=== PATIENT | male | born 1945 | race Two or more races ===

== ENCOUNTER 2024-09-22 15:29 | Inpatient (IN) | payer OTHER ==
[~2024-09-22] VITALS: Ht 175.3 cm; Wt 85.0 kg
[~2024-09-22 15:29] MED LIST: ALLO300T2 PO; ATOR-47 PO; CALC0.25 PO; CLON0.2T PO; DOXY100T2 PO; FLUT50SP NAS; FURO40TA4 PO; HYDR50TA47 PO; MET50T PO; METF-370 PO; NIFE1TAB31 PO; OMEP1CAP70 PO; POTA-228 PO; PRED10TA PO; SACU1TAB7 PO
--- NOTE | 2024-09-22 15:51 | ECG ---
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
--- NOTE | 2024-09-22 16:09 | ED.PDOC ---
History of Present Illness HPI Comments 79-year-old male presents with a chief complaint of syncope. Patient states that he was at home and felt dizzy, then all he can remember is waking up on the floor. Patient has a pacemaker and was told that he possibly needs a replacement. Patient denies any chest pain at this time or headache. Chief Complaint: Syncope Time Seen by MD: 16:00 Primary Care Provider: LISA Burgos Notes: Medications, Allergies Allergies: Coded Allergies: Carisoprodol (Verified Allergy, Unknown, 09/22/24) Information Source: Patient Mode of Arrival: Ambulatory Severity: Moderate Timing: Hours Duration: Since onset Prehospital treatment: None Past Medical History PAST MEDICAL HISTORY: CHF, CKF (Stage 3), COPD, DM, Gout, HTN Surgical History: Pt Confused Family History Family History: Reviewed,noncontributory to illness Social History Smoker: Non-Smoker Alcohol: Denies ETOH Use Drugs: Denies Drug Use Lives In: Home Constitutional: denies: chills, diaphoresis, fatigue, fever, malaise, sweats, weakness, others EENTM: denies: blurred vision, double vision, ear bleeding, ear discharge, ear drainage, ear pain, ear ringing, eye pain, eye redness, hearing loss, mouth pain, mouth swelling, nasal discharge, nose bleeding, nose congestion, nose pain, photophobia, tearing, throat pain, throat swelling, voice changes, others Respiratory: denies: cough, hemoptysis, orthopnea, SOB at rest, shortness of breath, SOB with excertion, stridor, wheezing, others Cardiovascular: reports: syncope; denies: chest pain, dizzy spells, diaphoresis, Dyspnea on exertion, edema, irregular heart beat, left arm pain, lightheadedness, palpitations, PND, others Gastrointestinal: denies: abdomen distended, abdominal pain, blood streaked bowels, constipated, diarrhea, dysphagia, difficulty swallowing, hematemesis, melena, nausea, poor appetite, poor fluid intake, rectal bleeding, rectal pain, vomiting, others Genitourinary: denies: burning, dysuria, flank pain, frequency, hematuria, incontinence, penile discharge, penile sore, pain, testicle pain, testicle swelling, urgency, others Neurological: denies: dizziness, fainting, headache, left sided numbness, left sided weakness, numbness, paresthesia, pre-existing deficit, right sided numbness, right sided weakness, seizure, speech problems, tingling, tremors, weakness, others Musculoskeletal: denies: back pain, gout, joint pain, joint swelling, muscle pain, muscle stiffness, neck pain, others Integumetry: denies: bruises, change in color, change in hair/nails, dryness, laceration, lesions, lumps, rash, wounds, others Allergic/Immunocompromised: denies: Difficulty Healing, Frequent Infections, Hives, Itching, others Hematologic/Lymphatic: denies: anemia, blood clots, easy bleeding, easy bruising, swollen glands, others Endocrine: denies: excessive hunger, excessive sweating, excessive thirst, excessive urination, flushing, intolerance to cold, intolerance to heat, une xplained weight gain, unexplained weight loss, others Psychiatric: denies: anxiety, bipolar disorder, depression, hopeless, panic disorder, schizophrenia, sleepless, suicidal, others All Other Systems: Reviewed and Negative Physical Exam General Appearance: No Apparent Distress, Normal HEENT: Normal ENT Inspection, Pharynx Normal, TMs Normal Neck: Full Range of Motion, Non-Tender, Normal, Normal Inspection Respiratory: Chest Non-Tender, Lungs Clear, No Accessory Muscle Use, No Respiratory Distress, Normal Breath Sounds Cardiovascular: No Edema, No JVD, No Murmur, No Gallop, Normal Peripheral Pul ses, Regular Rate/Rhythm Breast Exam: Deferred Gastrointestinal: No Organomegaly, Non Tender, No Pulsatile Mass, Normal Bowel Sounds, Soft Genitalia: Deferred Pelvic: Deferred Rectal: Deferred Extremities: No calf tenderness, Normal capillary refill, Normal inspection, Normal range of motion, Non-tender, No pedal edema Musculoskeletal : Apperance: Normal Neurologic: Alert, cloth washer back tender II-XII nml as Tested, No Motor Deficits, Normal Affect, Normal Mood, No Sensory Deficits Cerebellar Function: Normal Reflexes: Normal Skin: Dry, Normal Color, Warm Lymphatic: No Adenopathy Was a procedure done? Was a procedure done?: No EKG EKG : Pulse Rate (adult): 86 [place]: Normal Cardiac Rhythm: PVC's Block: None Hypertrophy: None ST: Normal Differential Dx Considerations may include: arrhythmia, riojas person syncope, hypoglycemia, electrolyte disorders, seizure, pacemaker failure X-Ray, Labs, Meds, VS Vital Signs Date Time Temp Pulse Resp B/P (MAP) Pulse Ox O2 Delivery O2 Flow Rate FiO2 09/22/24 16:09 86 09/22/24 15:47 86 09/22/24 15:35 97.9 85 20 133/94 (107) 94 97.9 Lab Test 09/22/24 16:30 09/22/24 15:41 Range/Units White Blood Count 11.4 H 4.4-10.8 10^3/uL Red Blood Count 4.41 L 4.5-5.90 10^6/uL Hemoglobin 13.5 13.5-17.5 g/dL Hematocrit 39.9 L 41.0-53.0 % Mean Corpuscular Volume 90.6 80.0-100.0 fL Mean Corpuscular Hemoglobin 30.6 28.0-32.0 pg Mean Corpuscular Hemoglobin Concent 33.8 32.0-36.0 g/dL Red Cell Distribution Width 14.6 H 11.8-14.3 % Platelet Count 217 140-450 10^3/uL Mean Platelet Volume 10.8 6.9-10.8 fL Neutrophils (%) (Auto) 71.5 37.0-80.0 % Lymphocytes (%) (Auto) 20.2 10.0-50.0 % Monocytes (%) (Auto) 7.5 0.0-12.0 % Eosinophils (%) (Auto) 0.5 0.0-7.0 % Basophils (%) (Auto) 0.3 0.0-2.0 % Neutrophils # (Auto) 8.2 1.6-8.6 10 ^3/uL Lymphocytes # (Auto) 2.3 0.4-5.4 10 ^3/uL Monocytes # (Auto) 0.9 0-1.3 10 ^3/uL Eosinophils # (Auto) 0.1 0-0.8 10 ^3/uL Basophils # (Auto) 0 0-0.2 10 ^3/uL Nucleated Red Blood Cells 0.0 % Sodium Level 141 136-145 mmol/L Potassium Level 3.8 3.5-5.1 mmol/L Chloride Level 102 98-107 mmol/L Carbon Dioxide Level 31 20-31 mmol/L Anion Gap 8 5-15 Blood Urea Nitrogen 20 9-23 mg/dL Creatinine 1.67 H 0.700-1.30 mg/dL Glomerular Filtration Rate Calc 42 >90 mL/min BUN/Creatinine Ratio 12.0 10.0-20.0 Serum Glucose 197 H 74-106 mg/dL Calcium Level 10.1 8.7-10.4 mg/dL Troponin I High Sensitivity 457 *H </=54 ng/L POC Glucose 202 H 70-106 mg/dl Time of 1ST Reevaluation: 16:30 Reevaluation 1ST: Unchanged Patient Education/Counseling: Diagnosis, Treatment, Prognosis, Need For Follow Up Family Education/Counseling: Diagnosis, Treatment, Prognosis, Need For Follow Up, No Family Present Comments pt suffered a syncopal episode. he was seen by his doctor and sent here for admission for cardiology consult and pacer eval. Departure 1 Departure Time of Disposition: 17:07 Impression: Primary Impression: Syncope Qualified Codes: I45.9 - Conduction disorder, unspecified Additional Impressions: Renal insufficiency NSTEMI (non-ST elevated myocardial infarction) Disposition: ADMITTED INPATIENT Admit to: ICU Condition: Serious Discharged With: Self, Relative Critical Care Note Critical Care Time?: Yes (55 min-critical care time only) Critical care comment: Due to concerns for patients condition deteriorating, the care required my highest level of attention and readiness to intervene. I assessed the patient, reviewed the medical records, ordered the appropriate tests and treatments, then reassessed for results and responsiveness. I communicated with medical personnel and consultants and formulated a plan of care. Total critical care time excludes any procedures Stability Stability form required: No Heart Score Heart Score: Heart Score Response (Comments) Value History N/A 0 EKG N/A 0 Age N/A 0 Risk Factors N/A 0 Troponin N/A 0 Total 0 I personally scribed for DEB ANTONIO MD ([email or web address]) on 09/22/24 at 16:09. Electronically submitted by Mich Andujar ([email or web address]). DEB ANTONIO MD Sep 22, 2024 16:09
--- NOTE | 2024-09-22 16:34 | DVH ---
CHEST RADIOGRAPH Indication: syncope Technique: Single frontal view of the chest was obtained COMPARISON: None FINDINGS: Lines and Tubes: None Lungs: Clear Pleura: Blunting right costophrenic angle suggestive of a small pleural effusion Cardiomediastinal contours: Unremarkable Bones: Unremarkable IMPRESSION: 1. Probable small right pleural effusion. Mild cardiomegaly
--- NOTE | 2024-09-22 16:40 | DVH ---
CLINICAL INDICATION: injury TECHNIQUE: 3 views left hip XY L HIP COMPLETE XRAY Comparison: None FINDINGS/IMPRESSION: : There is no evidence of acute fracture or dislocation. Soft tissues are unremarkable.
[2024-09-22 16:47] LABS: Basophils # (auto) 0 10 ^3/uL (0-0.2); Basophils % (auto) 0.3 % (0.0-2.0); Eosinophils # (auto) 0.1 10 ^3/uL (0-0.8); Eosinophils % (auto) 0.5 % (0.0-7.0); Hematocrit 39.9 % (41.0-53.0); Hemoglobin 13.5 g/dL (13.5-17.5); Lymphocytes # (auto) 2.3 10 ^3/uL (0.4-5.4); Lymphocytes % (auto) 20.2 % (10.0-50.0); Mean Corpuscular Hemoglobin 30.6 pg (28.0-32.0); Mean Corpuscular Hgb Conc. 33.8 g/dL (32.0-36.0); Mean Corpuscular Volume 90.6 fL (80.0-100.0); Monocytes # (auto) 0.9 10 ^3/uL (0-1.3); Monocytes % (auto) 7.5 % (0.0-12.0); Neutrophils # (auto) 8.2 10 ^3/uL (1.6-8.6); Neutrophils % (auto) 71.5 % (37.0-80.0); Platelet Count (auto) 217 10^3/uL (140-450); Red Blood Cells 4.41 10^6/uL (4.5-5.90); Red Cell Distribution Width 14.6 % (11.8-14.3); White Blood Cell 11.4 10^3/uL (4.4-10.8)
[2024-09-22 16:55] LABS: Chloride 102 mmol/L (98-107); Potassium 3.8 mmol/L (3.5-5.1); Sodium 141 mmol/L (136-145)
[2024-09-22 16:56] LABS: Anion Gap 8 (5-15); Calcium 10.1 mg/dL (8.7-10.4); Carbon Dioxide 31 mmol/L (20-31)
[2024-09-22 17:01] LABS: Blood Urea Nitrogen 20 mg/dL (9-23)
[2024-09-22 17:02] LABS: Glucose 197 mg/dL (74-106)
--- NOTE | 2024-09-22 17:26 | DVHHP2 ---
History of Present Illness Reason for Visit: Patient was sent by urgent care for syncope. History of Present Illness 79-year-old male with a known history of diabetes mellitus type 2, hypertension, 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 Patient stated that he was walking with his grandson and all of a sudden he past and fell backwards. He did mention that probably he lost consciousness for half a minute. Denies any chest pain palpitation before that denies any lightheadedness dizziness. Denies any seizure-like activities. In the ER patient was found to have elevated troponins original admission was recommended for SD. Patient currently denies any chest pain palpitations lightheaded dizziness fevers chills cough or phlegm. Cardiovascular: CHF, HTN, hyperipidemia Renal/: Chronic renal insuff Endocrine: Diabetes Past Surgical History: Other (Status post AICD.) Family History: None Smoke: No ALCOHOL: none Review of Systems Review of Systems 12 Review of systems were negative except mentioned above. Allergies: Coded Allergies: Carisoprodol (Verified Allergy, Unknown, 09/22/24) Medications Current Medications Medications Dose Ordered Sig/Yuki Route Start Time Stop Time Status Last Admin Dose Admin Sodium Chloride 1,000 ml @ 60 mls/hr [id number] IV 09/22/24 17:30 UNV Acetaminophen/ Hydrocodone Bitart 1 tab Q4HP PRN PO 09/22/24 17:30 UNV Temazepam 15 mg QHSP PRN PO 09/22/24 17:30 UNV Ondansetron HCl 4 mg Q4HP PRN IV 09/22/24 17:30 UNV Acetaminophen 650 mg Q6HP PRN PO 09/22/24 17:30 UNV Morphine Sulfate 2 mg Q4HPRN PRN IV 09/22/24 17:30 UNV Nitroglycerin 0.4 mg Q5MINP PRN SL 09/22/24 17:30 UNV Morphine Sulfate 2 mg Q30M PRN IV 09/22/24 17:30 UNV Enoxaparin Sodium 80 mg Q12HR SC 09/22/24 17:30 UNV Exam Vital Signs Vital Signs Date Time Temp Pulse Resp B/P (MAP) Pulse Ox O2 Delivery O2 Flow Rate FiO2 09/22/24 16:09 86 09/22/24 15:35 97.9 20 133/94 (107) 94 97.9 Exam HEENT pupils are reactive Neck is supple CV system is regular rate and rhythm Respiratory: Clear GI positive bowel sound Extremity no edema 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 Labs/Xrays Labs Test 09/22/24 16:30 09/22/24 15:41 Range/Units White Blood Count 11.4 H 4.4-10.8 10^3/uL Red Blood Count 4.41 L 4.5-5.90 10^6/uL Hemoglobin 13.5 13.5-17.5 g/dL Hematocrit 39.9 L 41.0-53.0 % Mean Corpuscular Volume 90.6 80.0-100.0 fL Mean Corpuscular Hemoglobin 30.6 28.0-32.0 pg Mean Corpuscular Hemoglobin Concent 33.8 32.0-36.0 g/dL Red Cell Distribution Width 14.6 H 11.8-14.3 % Platelet Count 217 140-450 10^3/uL Mean Platelet Volume 10.8 6.9-10.8 fL Neutrophils (%) (Auto) 71.5 37.0-80.0 % Lymphocytes (%) (Auto) 20.2 10.0-50.0 % Monocytes (%) (Auto) 7.5 0.0-12.0 % Eosinophils (%) (Auto) 0.5 0.0-7.0 % Basophils (%) (Auto) 0.3 0.0-2.0 % Neutrophils # (Auto) 8.2 1.6-8.6 10 ^3/uL Lymphocytes # (Auto) 2.3 0.4-5.4 10 ^3/uL Monocytes # (Auto) 0.9 0-1.3 10 ^3/uL Eosinophils # (Auto) 0.1 0-0.8 10 ^3/uL Basophils # (Auto) 0 0-0.2 10 ^3/uL Nucleated Red Blood Cells 0.0 % Sodium Level 141 136-145 mmol/L Potassium Level 3.8 3.5-5.1 mmol/L Chloride Level 102 98-107 mmol/L Carbon Dioxide Level 31 20-31 mmol/L Anion Gap 8 5-15 Blood Urea Nitrogen 20 9-23 mg/dL Creatinine 1.67 H 0.700-1.30 mg/dL Glomerular Filtration Rate Calc 42 >90 mL/min BUN/Creatinine Ratio 12.0 10.0-20.0 Serum Glucose 197 H 74-106 mg/dL Calcium Level 10.1 8.7-10.4 mg/dL Troponin I High Sensitivity 457 *H </=54 ng/L POC Glucose 202 H 70-106 mg/dl Assessment/Plan Assessment/Plan 79-year-old male with known history of diabetes mellitus type 2, hypertension, dyslipidemia, status post AICD, 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 Patient was found to have 1. Syncope rule out cardiac arrhythmia 2. Status post AICD, AICD interrogation 3. Elevated troponin rule out acute SD 4. Hypertension 5. Diabetes mellitus type 2 6. Acute kidney injury with underlying CKD 7. History of DVT of the left leg currently on Eliquis -admit to do you, trend troponins, 2D echo, cardiology consultation -aspirin, statin, beta karina, therapeutic Lovenox -hold Eliquis as we are giving therapeutic Lovenox for NSTEMI -discussed with the patient and patient's at bedside the understands verbalized understanding and agreeable to plan. Plan discussed with: Patient, Spouse My Orders Orders - PHILIPP STRANGE MD Procedure Category Date Status Time Admit ADMIT 09/22/24 Transmitted 17:17 Code Status CODE 09/22/24 Transmitted 17:17 2 Gm Sodium Diet DIET 09/22/24 Transmitted Dinner Sodium Chloride 0.9% PHA 09/22/24 Logged 17:30 Hydrocodone-Acet PHA 09/22/24 Logged 5/325mg Tab ([place] 17:30 Temazepam (Restoril) PHA 09/22/24 Logged 17:30 Ondansetron Hcl PHA 09/22/24 Logged (Zofran) 17:30 Fall Risk Precautions CHAY 09/22/[address] 17:17 Complete Blood Count LAB 09/23/24 Verified 04:00 Comprehensive LAB 09/23/24 Verified Metabolic Panel 04:00 Echo 2d Mode Cardiac US 09/22/24 Logged DOP 17:17 Condition: Fair CAHY 09/22/24 In Process 17:17 Acetaminophen Tablet PHA 09/22/24 Logged (Tylenol Tablet) 17:30 Morphine Sulfate PHA 09/22/24 Logged Injection 17:30 Nitroglycerin [facility] 09/22/24 Logged Sublingual (Ntrostat 17:30 Morphine Sulfate PHA 09/22/24 Logged Injection 17:30 Stat Ekg For Chest [facility] 09/22/24 In Process Pain 17:17 Notify Of Changes [facility] 09/22/24 In Process From Base 17:17 Hotel Custodian For [facility] 09/22/24 In Process 24 Hours 17:17 Emergency Dysrhythmia [facility] 09/22/24 In Process Protocol 17:17 Rhythm Strips Once [facility] 09/22/24 In Process Every Shift 17:17 Oxygen By Nasal RT 09/22/24 Transmitted Cannula 17:17 * Cardiology Consult CONS 09/22/24 Transmitted 17:17 Enoxaparin Sodium [facility] 09/22/24 Logged (Lovenox) 17:30 Metoprolol Tartrate [facility] 09/22/24 Verified Tablet (Lopressor Ta 22:00 Sacubitril-Valsartan [facility] 09/22/24 Verified (Entresto 24-26 Mg 22:00 Atorvastatin (Lipitor) [facility] 09/22/24 Verified 22:00 Date of Service: Sep 22, 2024 Billing Provider: PHILIPP STRANGE MD Common Visit Codes: NOT BILLABLE PHILIPP SRTANGE MD Sep 22, 2024 17:26
[2024-09-22] MEDS ORDERED: ONDANSETRON HCL 4 MG/2 ML VIAL IV PRN (17:30)
[2024-09-22] MEDS ORDERED: NITROGLYCERIN 0.4 MG SL TAB SL PRN (17:30)
[2024-09-22] MEDS ORDERED: TEMAZEPAM 15 MG CAP PO PRN (17:30)
[2024-09-22] MEDS ORDERED: HYDROcodone-ACET 5/325MG TAB PO PRN (17:30)
[2024-09-22] MEDS ORDERED: MORPHINE SULFATE INJ 2 MG/ml SYRG IV PRN ×2 (17:30)
[2024-09-22] MEDS: ENOXAPARIN SOD 100 MG/1 ML SYRINGE SC SCH (18:52)
[2024-09-22] MEDS: ASPirin 325 MG TAB PO ONE (19:01)
[2024-09-22 19:40] VITALS: PULSE 82; RESP 16; O2SAT 95
[2024-09-22] MEDS: SODIUM CHLORIDE 0.9% 1,000 ML IV SCH (20:30)
[2024-09-22] MEDS: SACUBITRIL-VALSARTAN 24mg/26mg TAB PO SCH (22:50)
[2024-09-22] MEDS: ATORVASTATIN 20 MG TAB PO SCH (22:51)
[2024-09-22] MEDS: METOPROLOL TARTRATE 50 MG TAB PO SCH (22:51)
[2024-09-23] VITALS (13 sets, daily range): BP systolic 123–164; BP diastolic 64–99; PULSE 60–88; RESP 12–18; TEMP 98–98.8; O2SAT 96–99
[2024-09-23] MEDS: ACETAMINOPHEN 325 MG TAB PO PRN (00:34)
[2024-09-23 04:22] LABS: Basophils # (auto) 0 10 ^3/uL (0-0.2); Basophils % (auto) 0.4 % (0.0-2.0); Eosinophils # (auto) 0.1 10 ^3/uL (0-0.8); Hematocrit 38.4 % (41.0-53.0); Hemoglobin 12.9 g/dL (13.5-17.5); Lymphocytes # (auto) 2.5 10 ^3/uL (0.4-5.4); Lymphocytes % (auto) 28.7 % (10.0-50.0); Mean Corpuscular Hemoglobin 30.5 pg (28.0-32.0); Mean Corpuscular Hgb Conc. 33.7 g/dL (32.0-36.0); Mean Corpuscular Volume 90.5 fL (80.0-100.0); Monocytes # (auto) 0.8 10 ^3/uL (0-1.3); Monocytes % (auto) 8.9 % (0.0-12.0); Neutrophils # (auto) 5.4 10 ^3/uL (1.6-8.6); Nucleated Red Blood Cells % 0.1 %; Platelet Count (auto) 176 10^3/uL (140-450); Red Blood Cells 4.24 10^6/uL (4.5-5.90); Red Cell Distribution Width 14.3 % (11.8-14.3); White Blood Cell 8.8 10^3/uL (4.4-10.8)
[2024-09-23 04:34] LABS: Alanine Aminotransferase 32 U/L (7-40); Albumin 4.1 g/dL (3.2-4.8); Anion Gap 8 (5-15); Aspartate Aminotransferase 33 U/L (13-40); BUN/Creatinine Ratio 13.5 (10.0-20.0); Bilirubin, Total 0.8 mg/dL (0.2-1.0); Blood Urea Nitrogen 19 mg/dL (9-23); Calcium 9.6 mg/dL (8.7-10.4); Carbon Dioxide 31 mmol/L (20-31); Chloride 103 mmol/L (98-107); Sodium 142 mmol/L (136-145); Total Protein 6.4 g/dL (5.7-8.2)
[2024-09-23 04:38] LABS: Alkaline Phosphatase 144 U/L (46-116); Glucose 151 mg/dL (74-106); Potassium 3.5 mmol/L (3.5-5.1)
--- NOTE | 2024-09-23 06:46 | DVHINCON2 ---
Date of service: Sep 23, 2024 History of Present Illness 79 yo M with hx of CHF with AICD presents with syncope. pt has nstemi and elevated trop. pt states he needs his device change out in November of this year. Past Medical History reviewed Family History: Diabetes mellitus G8 MOTHER, Onset: - 40 Allergies: Coded Allergies: Carisoprodol (Verified Allergy, Unknown, 09/22/24) Current Medications Current Medications Medications (Trade) Dose Ordered Sig/Yuki Route PRN Reason Start Time Stop Time Status Last Admin Sodium Chloride 1,000 ml @ 60 mls/hr [id number] IV 09/22/24 17:30 09/23/24 06:03 Acetaminophen/ Hydrocodone Bitart ([place] 5/325MG Tab) 1 tab Q4HP PRN PO MODERATE PAIN (4-6 PAIN SCALE) 09/22/24 17:30 Temazepam (Restoril) 15 mg QHSP PRN PO FOR INSOMNIA 09/22/24 17:30 Ondansetron HCl (Zofran) 4 mg Q4HP PRN IV NAUSEA / VOMITING 09/22/24 17:30 Acetaminophen (Tylenol Tablet) 650 mg Q6HP PRN PO PAIN SCALE 1-3 OR TEMP>100.4 09/22/24 17:30 09/23/24 00:34 Morphine Sulfate 2 mg Q4HPRN PRN IV SEVERE PAIN (7-10 PAIN SCALE) 09/22/24 17:30 Nitroglycerin (Ntrostat Sublingual) 0.4 mg Q5MINP PRN SL FOR CHEST PAIN 09/22/24 17:30 Morphine Sulfate 2 mg Q30M PRN IV FOR CHEST PAIN 09/22/24 17:30 Enoxaparin Sodium (Lovenox) 80 mg Q12H SC 09/22/24 17:30 09/22/24 18:52 Metoprolol Tartrate (Lopressor Tablet) 50 mg BID PO 09/22/24 22:00 09/22/24 22:51 Sacubitril/ Valsartan (Entresto 24-26 Mg tab) 1 tab BID PO 09/22/24 22:00 09/22/24 22:50 Atorvastatin Calcium (Lipitor) 40 mg HS PO 09/22/24 22:00 09/22/24 22:51 Review of Systems 10 pt ros otherwise negative Vital Signs Vital Signs Date Time Temp Pulse Resp B/P (MAP) Pulse Ox O2 Delivery O2 Flow Rate FiO2 09/23/24 04:00 65 09/23/24 04:00 98.1 12 164/99 (120) 98.1 09/23/24 00:58 97 Room Air* 0 21 Physical Exam nad s1 s2 rrr ctab soft nt/nd no edema Labs/Diagnostic Data Labs Test 09/23/24 03:54 09/23/24 00:32 09/22/24 19:40 Range/Units White Blood Count 8.8 4.4-10.8 10^3/uL Red Blood Count 4.24 L 4.5-5.90 10^6/uL Hemoglobin 12.9 L 13.5-17.5 g/dL Hematocrit 38.4 L 41.0-53.0 % Mean Corpuscular Volume 90.5 80.0-100.0 fL Mean Corpuscular Hemoglobin 30.5 28.0-32.0 pg Mean Corpuscular Hemoglobin Concent 33.7 32.0-36.0 g/dL Red Cell Distribution Width 14.3 11.8-14.3 % Platelet Count 176 140-450 10^3/uL Mean Platelet Volume 10.8 6.9-10.8 fL Neutrophils (%) (Auto) 61.0 37.0-80.0 % Lymphocytes (%) (Auto) 28.7 10.0-50.0 % Monocytes (%) (Auto) 8.9 0.0-12.0 % Eosinophils (%) (Auto) 1.0 0.0-7.0 % Basophils (%) (Auto) 0.4 0.0-2.0 % Neutrophils # (Auto) 5.4 1.6-8.6 10 ^3/uL Lymphocytes # (Auto) 2.5 0.4-5.4 10 ^3/uL Monocytes # (Auto) 0.8 0-1.3 10 ^3/uL Eosinophils # (Auto) 0.1 0-0.8 10 ^3/uL Basophils # (Auto) 0 0-0.2 10 ^3/uL Nucleated Red Blood Cells 0.1 % Sodium Level 142 136-145 mmol/L Potassium Level 3.5 3.5-5.1 mmol/L Chloride Level 103 98-107 mmol/L Carbon Dioxide Level 31 20-31 mmol/L Anion Gap 8 5-15 Blood Urea Nitrogen 19 9-23 mg/dL Creatinine 1.41 H 0.700-1.30 mg/dL Glomerular Filtration Rate Calc 51 >90 mL/min BUN/Creatinine Ratio 13.5 10.0-20.0 Serum Glucose 151 H 74-106 mg/dL Calcium Level 9.6 8.7-10.4 mg/dL Total Bilirubin 0.8 0.2-1.0 mg/dL Aspartate Amino Transferase (AST) 33 13-40 U/L Alanine Aminotransferase (ALT) 32 7-40 U/L Alkaline Phosphatase 144 H 46-116 U/L Total Protein 6.4 5.7-8.2 g/dL Albumin 4.1 3.2-4.8 g/dL POC Glucose 155 H 70-106 mg/dl Troponin I High Sensitivity 403 *H </=54 ng/L Assessment nstemi hx of syncope PVCs on ecg with LVH pattern ckd HTN HL CHF not specified Plan/Recommendation check echo hold lovenox get device check to assess for GENEVA and device therapies if device functioning well consider LHC will consult his primary cards keep NPO Plan discussed with: Patient TRACEY MANDUJANO MD Sep 23, 2024 06:46
[2024-09-23] MEDS ORDERED: cloNIDine HCL 0.1 MG TAB PO SCH (08:30)
[2024-09-23] MEDS: SACUBITRIL-VALSARTAN 24mg/26mg TAB PO SCH (09:58)
[2024-09-23] MEDS: METOPROLOL TARTRATE 50 MG TAB PO SCH (09:58)
[2024-09-23] MEDS ORDERED: CARVEDILOL 12.5 MG TAB PO SCH (10:00)
[2024-09-23] MEDS: MAGNESIUM SULFATE 1GM/100ML 100 ML IV SCH (10:07)
[2024-09-23] MEDS: POTASSIUM CHL 10 Meq TABLET PO SCH (10:42)
[2024-09-23] MEDS: hydrALAZINE HCL 25 MG TAB PO SCH (10:42)
[2024-09-23] MEDS: NIFEdipine 10 MG CAP PO SCH (12:10)
--- NOTE | 2024-09-23 14:47 | DVHPN2 ---
Subjective Overnight events noted, patient denies any chest pain. 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 Medications Current Medications Medications Dose Ordered Sig/Yuki Route Start Time Stop Time Status Last Admin Dose Admin Sodium Chloride 1,000 ml @ 60 mls/hr [id number] IV 09/22/24 17:30 09/23/24 06:03 60 MLS/HR Acetaminophen/ Hydrocodone Bitart 1 tab Q4HP PRN PO 09/22/24 17:30 Temazepam 15 mg QHSP PRN PO 09/22/24 17:30 Ondansetron HCl 4 mg Q4HP PRN IV 09/22/24 17:30 Acetaminophen 650 mg Q6HP PRN PO 09/22/24 17:30 09/23/24 00:34 650 MG Morphine Sulfate 2 mg Q4HPRN PRN IV 09/22/24 17:30 Nitroglycerin 0.4 mg Q5MINP PRN SL 09/22/24 17:30 Morphine Sulfate 2 mg Q30M PRN IV 09/22/24 17:30 Atorvastatin Calcium 40 mg HS PO 09/22/24 22:00 09/22/24 22:51 40 MG Sacubitril/ Valsartan 1 tab BID PO 09/23/24 10:00 09/23/24 09:58 1 TAB Nifedipine 30 mg DAILY PO 09/23/24 10:00 09/23/24 12:10 30 MG Clonidine HCl 0.2 mg PRN PO 09/23/24 08:30 Hold Metoprolol Tartrate 50 mg BID PO 09/23/24 10:00 09/23/24 09:58 50 MG Hydralazine HCl 50 mg Q12HR PO 09/23/24 10:00 09/23/24 10:42 50 MG Furosemide 40 mg BIDD PO 09/23/24 18:00 Potassium Chloride 10 meq DAILY PO 09/23/24 10:00 09/23/24 10:42 10 MEQ Laboratory Results Laboratory Tests 09/23/24 03:54 Chemistry Test 09/22/24 16:30 09/23/24 03:54 Calcium Level 10.1 mg/dL (8.7-10.4) 9.6 mg/dL (8.7-10.4) Albumin 4.1 g/dL (3.2-4.8) Magnesium Level 1.8 mg/dL (1.6-2.6) Total Protein 6.4 g/dL (5.7-8.2) LFT Test 09/23/24 03:54 Alanine Aminotransferase (ALT) 32 U/L (7-40) Alkaline Phosphatase 144 U/L (46-116) H Aspartate Amino Transferase (AST) 33 U/L (13-40) Total Bilirubin 0.8 mg/dL (0.2-1.0) Assessment/Plan Assessment/Plan 79-year-old male with known history of diabetes mellitus type 2, hypertension, dyslipidemia, status post AICD, 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 Patient was found to have 1. Syncope rule out cardiac arrhythmia 2. Status post AICD, AICD interrogation 3. Elevated troponin rule out acute MD 4. Hypertension 5. Diabetes mellitus type 2 6. Acute kidney injury with underlying CKD 7. History of DVT of the left leg currently on Eliquis -discontinue heparin, AICD device check, left heart catheterization -aspirin, statin, beta karina, may resume Eliquis if Lovenox has been discontinued -discussed with the patient and patient's at bedside the understands verbalized understanding and agreeable to plan. Plan discussed with: Patient, Spouse My Orders Orders - PHILIPP STRANGE MD Procedure Category Date Status Time Admit ADMIT 09/22/24 Transmitted 17:17 Code Status CODE 09/22/24 Transmitted 17:17 Sodium Chloride 0.9% PHA 09/22/24 In Process 17:30 Hydrocodone-Acet PHA 09/22/24 In Process 5/325mg Tab ([place] 17:30 Temazepam (Restoril) PHA 09/22/24 In Process 17:30 Ondansetron Hcl PHA 09/22/24 In Process (Zofran) 17:30 Condition: Fair CHAY 09/22/24 In Process 17:17 Acetaminophen Tablet PHA 09/22/24 In Process (Tylenol Tablet) 17:30 Morphine Sulfate PHA 09/22/24 In Process Injection 17:30 Nitroglycerin PHA 09/22/24 In Process Sublingual (Ntrostat 17:30 Morphine Sulfate PHA 09/22/24 In Process Injection 17:30 Stat Ekg For Chest [facility] 09/22/24 In Process Pain 17:17 Notify Md Of Changes [facility]AY 09/22/24 In Process From Base 17:17 Needle Control [place] For CHAY 09/22/24 In Process 24 Hours 17:17 Emergency Dysrhythmia CHAY 09/22/24 In Process Protocol 17:17 Rhythm Strips Once [facility] 09/22/24 In Process Every Shift 17:17 Oxygen By Nasal RT 09/22/24 Transmitted Cannula 17:17 * Cardiology Consult CONS 09/22/24 Transmitted 17:17 Atorvastatin (Lipitor) PHA 09/22/24 In Process 22:00 Mrsa Screen KIRK 09/23/24 In Process 00:00 Date of Service: Sep 23, 2024 Billing Provider: PHILIPP STRANGE MD Common Visit Codes: NOT BILLABLE PHILIPP STRANGE MD Sep 23, 2024 14:47
[2024-09-23] MEDS: FUROSEMIDE 40 MG TAB PO SCH (17:36)
[2024-09-23] MEDS: ENOXAPARIN SOD 100 MG/1 ML SYRINGE SC SCH (22:28)
[2024-09-24] VITALS (12 sets, daily range): BP systolic 115–146; BP diastolic 65–85; PULSE 72–92; RESP 12–18; TEMP 97.5–98.6; O2SAT 93–99
[2024-09-24 08:27] LABS: INR 1.01 (0.9-1.15); Partial Thromboplastin Time 28.7 SEC (24.5-34.5); Prothrombin Time 10.7 sec (9.3-11.8)
[2024-09-24] MEDS: IODIXANOL 320MG/ML 100ML BTL IV ONE ×2 (13:12→15:40)
--- NOTE | 2024-09-24 14:10 | DVHPN2 ---
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 Reviewed: Care Plan Changes from previous H/P or p: No Changes Objective Vitals Vital Signs Date Time Temp Pulse Resp B/P (MAP) Pulse Ox O2 Delivery O2 Flow Rate FiO2 09/24/24 09:24 146/77 09/24/24 09:23 74 09/24/24 09:00 97.5 17 97 97.5 09/24/24 08:00 Nasal Cannula* 2 28 Intake/Output Intake and Output 09/24/24 07:00 Intake Total 900 ml Balance 900 ml Intake Oral 900 ml # Voids 5 # Bowel Movements 1 Medications Current Medications Medications Dose Ordered Sig/Yuki Route Start Time Stop Time Status Last Admin Dose Admin Acetaminophen/ Hydrocodone Bitart 1 tab Q4HP PRN PO 09/22/24 17:30 Temazepam 15 mg QHSP PRN PO 09/22/24 17:30 Ondansetron HCl 4 mg Q4HP PRN IV 09/22/24 17:30 Acetaminophen 650 mg Q6HP PRN PO 09/22/24 17:30 09/23/24 00:34 650 MG Morphine Sulfate 2 mg Q4HPRN PRN IV 09/22/24 17:30 Nitroglycerin 0.4 mg Q5MINP PRN SL 09/22/24 17:30 Morphine Sulfate 2 mg Q30M PRN IV 09/22/24 17:30 Atorvastatin Calcium 40 mg HS PO 09/22/24 22:00 09/23/24 22:25 40 MG Sacubitril/ Valsartan 1 tab BID PO 09/23/24 10:00 09/24/24 09:22 1 TAB Nifedipine 30 mg DAILY PO 09/23/24 10:00 09/24/24 09:24 30 MG Clonidine HCl 0.2 mg PRN PO 09/23/24 08:30 Hold Metoprolol Tartrate 50 mg BID PO 09/23/24 10:00 09/24/24 09:23 50 MG Hydralazine HCl 50 mg Q12HR PO 09/23/24 10:00 09/24/24 09:24 50 MG Furosemide 40 mg BIDD PO 09/23/24 18:00 09/24/24 05:49 40 MG Potassium Chloride 10 meq DAILY PO 09/23/24 10:00 09/24/24 09:23 10 MEQ Enoxaparin Sodium 80 mg Q12HR SC 09/23/24 22:00 09/23/24 22:28 80 MG Laboratory Results Laboratory Tests 09/23/24 03:54 Coagulation Test 09/24/24 06:38 Prothrombin Time 10.7 sec (9.3-11.8) Prothrombin Time INR 1.01 (0.9-1.15) Activated Partial Thromboplast Time 28.7 SEC (24.5-34.5) Microbiology Microbiology Date/Time Source Procedure Growth Status 09/23/24 00:00 Nose MRSA Screen - Final Complete Assessment/Plan Assessment/Plan 79-year-old male with known history of diabetes mellitus type 2, hypertension, dyslipidemia, status post AICD, 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 Patient was found to have 1. Syncope rule out cardiac arrhythmia 2. Status post AICD, AICD interrogation 3. Elevated troponin rule out acute NC 4. Hypertension 5. Diabetes mellitus type 2 6. Acute kidney injury with underlying CKD 7. History of DVT of the left leg was on Eliquis -discontinue heparin, AICD device check, left heart catheterization -aspirin, statin, beta karina, hold Eliquis, bridge with Lovenox -patient will be signed out to my colleague Dr Yun. Plan discussed with: Spouse Date of Service: Sep 24, 2024 Billing Provider: PHILIPP STRANGE MD Common Visit Codes: NOT BILLABLE PHILIPP STRANGE MD Sep 24, 2024 14:10
[2024-09-24] MEDS: HEPARIN IN NS 1000Units/500mL 1,500 ML ONE (15:40)
[2024-09-24] MEDS: ANGIOMAX 250 MG VIAL IV ONE (15:57)
[2024-09-24] MEDS: VERAPAMIL 2.5MG/ML INJ 2ML VIAL IV ONE (15:57)
[2024-09-24] MEDS: HEPARIN SODIUM (PORCINE) 5000 UNITS/ML 1ML VIAL ONE (15:57)
[2024-09-24] MEDS: LIDOCAINE 2%HCL (LOCAL ANESTH.) INJ 20ML MDV ONE (15:58)
[2024-09-24] MEDS: SODIUM CHL 0.9% 0 ML ONE (15:58)
[2024-09-24] MEDS: MIDAZOLAM HCL 2MG/2ML 2ml VIAL (1mg/ml) ONE (15:58)
[2024-09-24] MEDS: fentaNYL CITRATE 100 MCG/2 ML VL ONE (15:58)
--- NOTE | 2024-09-24 17:19 | DVHOP2 ---
Operative Report - 2 Report Details Date: 09/24/24 Preop Diagnosis: Status post ventricular fibrillation. Status post ICD shock. Coronary artery disease. Cardiomyopathy. Postop Diagnosis: Cardiomyopathy. Surgeon: Spenser Tolbert MD Anesthesiologist: Conscious sedation. Anesthesia: Mac, Local Consent: The patient was informed of the risks and benefits of the procedure. These include but are not limited to complications of anesthesia, postoperative infection, incomplete relief of symptoms, recurrence of symptoms, damage to blood vessels, nerves and tendons, deep venous thrombosis, pulmonary embolism and possible need for repeat surgery in the future. Complications: No complications. Findings: No significant CAD. Mild cardiomyopathy. Indications for Surgery: Status post ICD shock. Name of Procedure Performed Left heart catheterization, bilateral cine coronary angiography. Left ventriculography. Procedure Details Procedure Details: Prior local anesthesia with 2% lidocaine to the right wrist and full informed consent obtained the patient was prepped and draped in the usual fashion follow ed by placement of a six Emirati sheath into the right radial artery through which a Xierkang catheter was used for ventriculography and cannulation of both right and left coronary ostia without complications. Hemodynamics. Aortic blood pressure was 110/70 end-diastolic pressure was five. There was no gradient across the aortic valve on pullback. Coronary anatomy the RCA is a large vessel it is normal in its proximal mid and distal segments. PDA and posterolateral branches were normal. Left main is large and normal. Left anterior descending is a large vessel with mild plaquing. No critical lesions in the LAD diagonals are septals. Left circumflex coronary artery is normal without critical lesions. Two marginals are free of significant disease. Ventriculography in the CAT projection shows an EF of 50%. Mild apical hypokinesis. Impression: Normal left ventricular end-diastolic pressure was normal ejection fraction with wall motion abnormalities however no artery disease. Normal coronary vessels. Recommendations: Continue risk factor modification. Replacement of ICD given given pacer is at [facility]. Condition Good Disposition Still a Patient Date of Service: Sep 24, 2024 Billing Provider: SPENSER TOLBERT Sr., MD Cardiology Common Codes: PROCEDURE ONLY Cardiology Procedure Codes: 38391-TTER HEART CATH W/INTRA INJ SPENSER TOLBERT Sr., MD Sep 24, 2024 17:19
--- NOTE | 2024-09-24 18:08 | DVHINCON2 ---
Date of service: Sep 24, [address] Tolbert Reason for Consultation Evaluation for Potential AICD Generator Replacement History of Present Illness This is a 79-year old male who initially presented with reported syncope. Reports indicate the patient was walking with his grandson and experience an episode of dizziness resulting in subsequent syncope which all he recalls is then awaking on the floor. Upon ED arrival, patient was found to have NSTEMI with a peak HS troponin level of 468 which the patient later underwent subseque nt cardiac catheterization (09/24/2024) revealing no significant coronary artery disease with mild cardiomyopathy. Ventriculogram had revealed an LVEF of 50%. Patient himself is known to have a previous history of non-ischemic cardiomyopathy which he underwent subsequent Medtronic dual-chamber AICD implantation ([facility] 06/10/2015). At present, it was questioned that the patients AICD had reached [employer] however upon review of device interrogation, the device itself was found to have approximately 10 months remaining until [employer]. As the patient presented and there was questionable concern that present AICD had reached [employer]UGLESS DOCTOR, Electrophysiology services were involved by Interventional Cardiology request to evaluate the patient for potential AICD generator replacement. Past Medical History Reviewed Past Surgical History Reviewed Family History: Diabetes mellitus G8 MOTHER, Onset: - 40 Allergies: Coded Allergies: Carisoprodol (Verified Allergy, Unknown, 09/22/24) Home Meds Reported Medications Clonidine Hydrochloride (Clonidine Hcl) 0.2 Mg Tab, 1 TAB PO BID for 100 Days, #200 09/23/24 Sacubitril-Valsartan (Entresto 49-51 mg) 1 Tab Tab, 1 TAB PO BID for 30 Days, #60 09/23/24 Metoprolol Tartrate (LOPRESSOR TABLET) 50 Mg Tb, 1 TAB PO BID for 90 Days, #180 09/23/24 Metformin Hydrochloride (Metformin Hcl) 500 Mg Tab, 1 TAB PO BID for 90 Days, #180 09/23/24 Potassium Chloride (Potassium Chloride ER) 10 Meq Tab, 1 TAB PO DAILY for 90 Days, #90 09/23/24 Nifedipine (Nifedipine Er) 30 Mg Tab, 1 TAB PO DAILY for 90 Days, #90 09/23/24 Omeprazole (Omeprazole Dr) 20 Mg Cap, 1 CAP PO DAILY for 90 Days, #90 09/23/24 Atorvastatin Calcium (ATORVASTATIN CALCIUM) 80 Mg Tab, 1 TAB PO DAILY for 90 Days, #90 09/23/24 Hydralazine Hcl (Hydralazine Hcl) 50 Mg Tab, 1 TAB PO TID for 90 Days, #270 09/23/24 Allopurinol (Allopurinol) 300 Mg Tab, 1 TAB PO DAILY for 30 Days, #30 09/23/24 Furosemide (Furosemide) 40 Mg Tab, 1 TAB PO DAILY for 30 Days, #30 09/23/24 Fluticasone Propionate (Nasal) (Fluticasone Propionate) 50 Mcg/Act Spr, 1 SPRAY SANDIE DAILY for 60 Days, #16 09/23/24 Calcitriol (Calcitriol) 0.25 Mcg Cap, 1 CAP PO DAILY for 30 Days, #30 09/23/24 Discontinued Reported Medications Prednisone (Prednisone) 10 Mg Tab, 50 MG PO DAILY for 5 Days, #5 09/23/24 Doxycycline Hyclate (Doxycycline Hyclate) 100 Mg Tab, 1 TAB PO BID for 5 Days, #10 09/23/24 Current Medications Current Medications Medications (Trade) Dose Ordered Sig/Yuki Route PRN Reason Start Time Stop Time Status Last Admin Enoxaparin Sodium (Lovenox) 80 mg Q12HR SC 09/23/24 22:00 09/23/24 22:28 Review of Systems A 14-point review of systems is negative unless otherwise noted above Vital Signs Vital Signs Date Time Temp Pulse Resp B/P (MAP) Pulse Ox O2 Delivery O2 Flow Rate FiO2 09/24/24 11:45 98.1 74 13 129/65 (86) 93 98.1 09/24/24 08:00 Nasal Cannula* 2 28 Physical Exam Heart: S1 and S2 regular. The patient is in sinus rhythm. Lungs: Clear to auscultation Abdomen: Benign. Extremities: Distal pulses palpable, 2+. No evidence for peripheral edema Labs/Diagnostic Data Labs Test 09/24/24 06:38 09/23/24 03:54 09/23/24 00:32 09/22/24 19:40 Range/Units Prothrombin Time 10.7 9.3-11.8 sec Prothrombin Time INR 1.01 0.9-1.15 Activated Partial Thromboplast Time 28.7 24.5-34.5 SEC White Blood Count 8.8 4.4-10.8 10^3/uL Red Blood Count 4.24 L 4.5-5.90 10^6/uL Hemoglobin 12.9 L 13.5-17.5 g/dL Hematocrit 38.4 L 41.0-53.0 % Mean Corpuscular Volume 90.5 80.0-100.0 fL Mean Corpuscular Hemoglobin 30.5 28.0-32.0 pg Mean Corpuscular Hemoglobin Concent 33.7 32.0-36.0 g/dL Red Cell Distribution Width 14.3 11.8-14.3 % Platelet Count 176 140-450 10^3/uL Mean Platelet Volume 10.8 6.9-10.8 fL Neutrophils (%) (Auto) 61.0 37.0-80.0 % Lymphocytes (%) (Auto) 28.7 10.0-50.0 % Monocytes (%) (Auto) 8.9 0.0-12.0 % Eosinophils (%) (Auto) 1.0 0.0-7.0 % Basophils (%) (Auto) 0.4 0.0-2.0 % Neutrophils # (Auto) 5.4 1.6-8.6 10 ^3/uL Lymphocytes # (Auto) 2.5 0.4-5.4 10 ^3/uL Monocytes # (Auto) 0.8 0-1.3 10 ^3/uL Eosinophils # (Auto) 0.1 0-0.8 10 ^3/uL Basophils # (Auto) 0 0-0.2 10 ^3/uL Nucleated Red Blood Cells 0.1 % Sodium Level 142 136-145 mmol/L Potassium Level 3.5 3.5-5.1 mmol/L Chloride Level 103 98-107 mmol/L Carbon Dioxide Level 31 20-31 mmol/L Anion Gap 8 5-15 Blood Urea Nitrogen 19 9-23 mg/dL Creatinine 1.41 H 0.700-1.30 mg/dL Glomerular Filtration Rate Calc 51 >90 mL/min BUN/Creatinine Ratio 13.5 10.0-20.0 Serum Glucose 151 H 74-106 mg/dL Calcium Level 9.6 8.7-10.4 mg/dL Magnesium Level 1.8 1.6-2.6 mg/dL Total Bilirubin 0.8 0.2-1.0 mg/dL Aspartate Amino Transferase (AST) 33 13-40 U/L Alanine Aminotransferase (ALT) 32 7-40 U/L Alkaline Phosphatase 144 H 46-116 U/L Total Protein 6.4 5.7-8.2 g/dL Albumin 4.1 3.2-4.8 g/dL POC Glucose 155 H 70-106 mg/dl Troponin I High Sensitivity 403 *H </=54 ng/L Microbiology Date/Time Source Procedure Growth Status 09/23/24 00:00 Nose MRSA Screen - Final Complete Plan/Recommendation ASSESSMENTS: This is a 79-year old male who initially presented with reported syncope. Reports indicate the patient was walking with his grandson and experience an episode of dizziness resulting in subsequent syncope which all he recalls is then awaking on the floor. Upon ED arrival, patient was found to have NSTEMI with a peak HS troponin level of 468 which the patient later underwent subsequent cardiac catheterization (09/24/2024) revealing no significant coronary artery disease with mild cardiomyopathy. Ventriculogram had revealed an LVEF of 50%. Patient himself is known to have a previous history of non-ischemic cardiomyopathy which he underwent subsequent Medtronic dual-chamber AICD implantation ([facility] 06/10/2015). At present, it was questioned that the patients AICD had reached [employer]UGLESS DOCTOR however upon review of device interrogation, the device itself was found to have approximately 10 months remaining until [employer]UGL[employer] DOCTOR. As the patient presented and there was questionable concern that present AICD had reached DRUGLESS DOCTOR, Electrophysiology services were involved by Interventional Cardiology request to evaluate the patient for potential AICD generator replacement. Syncope NSTEMI, no obstructive CAD per [facility] (09/24/2024) Presence of Medtronic dual-chamber AICD, 10 months battery life remaining Non-ischemic cardiomyopathy, history of QRS < 120 milliseconds ELECTROPHYSIOLOGY SUGGESTIONS FOR MANAGEMENT: As present device (AICD) had revealed approximately 10 months battery life remaining, out-patient AICD generator replacement can be justified Patient will need to follow up with out-patient cardiology/electrophysiology services for continue management/observation of present AICD Remains stable from an EP perspective, remainder of cardiac management as per Interventional Cardiology services. Proceed with close rate and rhythm surveillance Proceed with close hemodynamic surveillance Proceed with optimized blood pressure control Transfuse to sustain HGB level above 7.0 Sustain Magnesium level greater than 2.0 Sustain Potassium level greater than 4.0 Follow up renal function and electrolytes Management in telemetry Will proceed to follow from an EP perspective Remainder of cardiac management as per Interventional Cardiology Further recommendations per clinical progression All available diagnostic labs, EKG's, and images were personally reviewed Patient's status, findings, and plan of care was reviewed and discussed with supervising physician Dr. Catherine, who is in agreement with current plan of care. Plan of care discussed with and agreed upon by patient / primary RN Prognosis: Guarded Thank you for allowing me to participate in the care of this patient. Further recommendations based on patients clinical course and progression, primary attending, and other consultants. Will continue to follow with primary attending. If you have any questions or concerns, please do not hesitate to contact me. A total of 75 minutes was spent reviewing the patient record, examining the patient, making a diagnostic and therapeutic plan, discussing this plan with medical personnel, following up on diagnostic studies and following the patient for clinical stability excluding any and all procedures. At least 50% of this time was spent in direct, [id number] contact. Plan discussed with: Patient (Patient and Primary RN ) DORITATRELLHEATHER JENKINSP Sep 24, 2024 18:08
[2024-09-25] VITALS (7 sets, daily range): BP systolic 111–136; BP diastolic 64–85; PULSE 60–85; RESP 16–18; TEMP 36.4; O2SAT 96–97
--- NOTE | 2024-09-25 06:29 | DVHPN2 ---
Progress Note - Dictate Date Seen: September 25, 2024 Medical Necessity Reason Pt with a Central, PICC or Fol: No vital signs Vital Sign Date Time Temp Pulse Resp B/P (MAP) Pulse Ox O2 Delivery O2 Flow Rate FiO2 09/25/24 06:15 136/85 09/25/24 05:14 97.9 85 17 97 97.9 09/24/24 20:00 Nasal Cannula* 2 28 Total Intake and Output 09/24/24 09/24/24 09/25/24 15:00 23:00 07:00 Intake Total 0 ml 0 ml Balance 0 ml 0 ml medications Current Medications Medications Dose Ordered Sig/Yuki Route Start Time Stop Time Status Last Admin Dose Admin Acetaminophen/ Hydrocodone Bitart 1 tab Q4HP PRN PO 09/22/24 17:30 Temazepam 15 mg QHSP PRN PO 09/22/24 17:30 Ondansetron HCl 4 mg Q4HP PRN IV 09/22/24 17:30 Acetaminophen 650 mg Q6HP PRN PO 09/22/24 17:30 09/23/24 00:34 650 MG Morphine Sulfate 2 mg Q4HPRN PRN IV 09/22/24 17:30 Nitroglycerin 0.4 mg Q5MINP PRN SL 09/22/24 17:30 Morphine Sulfate 2 mg Q30M PRN IV 09/22/24 17:30 Atorvastatin Calcium 40 mg HS PO 09/22/24 22:00 09/24/24 21:54 40 MG Sacubitril/ Valsartan 1 tab BID PO 09/23/24 10:00 09/24/24 21:53 1 TAB Nifedipine 30 mg DAILY PO 09/23/24 10:00 09/24/24 09:24 30 MG Clonidine HCl 0.2 mg PRN PO 09/23/24 08:30 Hold Metoprolol Tartrate 50 mg BID PO 09/23/24 10:00 09/24/24 21:54 50 MG Hydralazine HCl 50 mg Q12HR PO 09/23/24 10:00 09/24/24 21:56 50 MG Furosemide 40 mg BIDD PO 09/23/24 18:00 09/25/24 06:15 40 MG Potassium Chloride 10 meq DAILY PO 09/23/24 10:00 09/24/24 09:23 10 MEQ Enoxaparin Sodium 80 mg Q12HR SC 09/23/24 22:00 09/23/24 22:28 80 MG laboratory and microbiology Laboratory Tests 09/23/24 03:54 Test 09/23/24 03:54 Range/Units Serum Glucose 151 H 74-106 mg/dL Assessment/Plan ASSESSMENTS: This is a 79-year old male who initially presented with reported syncope. Reports indicate the patient was walking with his grandson and experience an episode of dizziness resulting in subsequent syncope which all he recalls is then awaking on the floor. Upon ED arrival, patient was found to have NSTEMI with a peak HS troponin level of 468 which the patient later underwent subsequent cardiac catheterization (09/24/2024) revealing no significant coronary artery disease with mild cardiomyopathy. Ventriculogram had revealed an LVEF of 50%. Patient himself is known to have a previous history of non-ischemic cardiomyopathy which he underwent subsequent Medtronic dual-chamber AICD implantation ([facility] 06/10/2015). At present, it was questioned that the patients AICD had reached [employer] however upon review of device interrogation, the device itself was found to have approximately 10 months remaining until [employer]. As the patient presented and there was questionable concern that present AICD had reached [employer], Electrophysiology services were involved by Interventional Cardiology request to evaluate the patient for potential AICD generator replacement. Syncope NSTEMI, no obstructive CAD per [facility] (09/24/2024) Presence of Medtronic dual-chamber AICD, 10 months battery life remaining Non-ischemic cardiomyopathy, history of QRS < 120 milliseconds ELECTROPHYSIOLOGY SUGGESTIONS FOR MANAGEMENT: As present device (AICD) had revealed approximately 10 months battery life remaining, out-patient AICD generator replacement can be justified Patient will need to follow up with out-patient cardiology/electrophysiology services for continue management/observation of present AICD Remains stable from an EP perspective, remainder of cardiac management as per Interventional Cardiology services. Proceed with close rate and rhythm surveillance Proceed with close hemodynamic surveillance Proceed with optimized blood pressure control Transfuse to sustain HGB level above 7.0 Sustain Magnesium level greater than 2.0 Sustain Potassium level greater than 4.0 Follow up renal function and electrolytes Management in telemetry Will proceed to follow from an EP perspective Remainder of cardiac management as per Interventional Cardiology Further recommendations per clinical progression All available diagnostic labs, EKG's, and images were personally reviewed Patient's status, findings, and plan of care was reviewed and discussed with supervising physician Dr. Catherine, who is in agreement with current plan of care. Plan of care discussed with and agreed upon by patient / primary RN Prognosis: Guarded Thank you for allowing me to participate in the care of this patient. Further recommendations based on patients clinical course and progression, primary attending, and other consultants. Will continue to follow with primary attending. If you have any questions or concerns, please do not hesitate to contact me. A total of 75 minutes was spent reviewing the patient record, examining the patient, making a diagnostic and therapeutic plan, discussing this plan with medical personnel, following up on diagnostic studies and following the patient for clinical stability excluding any and all procedures. At least 50% of this time was spent in direct, [id number] contact. Plan discussed with: Patient TRELL KEVIN September 25, 2024 06:29
--- NOTE | 2024-09-25 10:44 | DVHSR ---
APPROVED REPORT EXAM: Two-dimensional and M-mode echocardiogram with Doppler and color Doppler. Blood Pressure: 148/87 mmHg INDICATION NSTEMI RISK FACTORS Height: 5'9", Weight: 183 DIMENSIONS LVDd4.7 (3.8-5.7cm)LA (2D)4.6 (1.9-4.0cm)Aortic Root3.1 (2.0-3.7cm) LVDs3.5 (2.5-4.0cm)LA (MM) (1.9-4.0cm)Aortic Cusp Exc1.7 (1.5-2.0cm) EF (%) 50.0 (55-70%)Rt. Atrium (1.9-4.0cm)Asc. Aorta3.6 cm IVSd1.3 (0.7-1.1cm)RV (D) (1.8-2.4cm) PWd1.1 (0.7-1.1cm) Mitral Valve MitralMitral Stenosis E wave0.37m/sMV Mean GR.mmHg A wave0.66m/sMV Peak GR.mmHg E/A ratio0.62D MVAcm2 DECEL [id number] 1/2 Timems Aortic Valve Aortic ValveAortic Stenosis V10.57m/Yudi Mean GR.3mmHg V21.03m/Yudi Peak GR.4mmHg LVOT Diameter2.4 (1.8-2.4cm)Doppler AVA2.50cm2 2D AVA2.65cm2 Pulmonic Valve V20.70m/s Tricuspid Valve TR Velocity2.31m/s [id number] Other Information Quality : Technically LimitedRhythm : Technically limited study due to body habitus. Conclusion Sinus rhythm. Concentric LVH with left atrial enlargement. Mild aortic sclerosis without stenosis. EF of 55% with normal LV function. Impaired diastolic relaxation. Diastolic dysfunction. Mild TR. No pericardial effusion masses or vegetations.
--- NOTE | 2024-09-25 15:50 | DVHPN2 ---
Progress Note - Dictate Date Seen: September 25, 2024 Medical Necessity Reason Pt with a Central, PICC or Fol: No Subjective Clinically stable. No complaints. Waiting for electrophysiology to evaluate him to change AICD battery. vital signs Vital Sign Date Time Temp Pulse Resp B/P (MAP) Pulse Ox O2 Delivery O2 Flow Rate FiO2 09/25/24 13:00 97.5 76 18 123/70 (87) 97 97.5 09/25/24 08:00 Room Air* 0 21 Total Intake and Output 09/24/24 09/24/24 09/25/24 15:00 23:00 07:00 Intake Total 0 ml 0 ml Balance 0 ml 0 ml medications Current Medications Medications Dose Ordered Sig/Yuki Route Start Time Stop Time Status Last Admin Dose Admin Acetaminophen/ Hydrocodone Bitart 1 tab Q4HP PRN PO 09/22/24 17:30 Temazepam 15 mg QHSP PRN PO 09/22/24 17:30 Ondansetron HCl 4 mg Q4HP PRN IV 09/22/24 17:30 Acetaminophen 650 mg Q6HP PRN PO 09/22/24 17:30 09/23/24 00:34 650 MG Morphine Sulfate 2 mg Q4HPRN PRN IV 09/22/24 17:30 Nitroglycerin 0.4 mg Q5MINP PRN SL 09/22/24 17:30 Morphine Sulfate 2 mg Q30M PRN IV 09/22/24 17:30 Atorvastatin Calcium 40 mg HS PO 09/22/24 22:00 09/24/24 21:54 40 MG Sacubitril/ Valsartan 1 tab BID PO 09/23/24 10:00 09/25/24 09:30 1 TAB Nifedipine 30 mg DAILY PO 09/23/24 10:00 09/25/24 10:05 30 MG Clonidine HCl 0.2 mg PRN PO 09/23/24 08:30 Hold Metoprolol Tartrate 50 mg BID PO 09/23/24 10:00 09/25/24 09:30 50 MG Hydralazine HCl 50 mg Q12HR PO 09/23/24 10:00 09/25/24 09:30 50 MG Furosemide 40 mg BIDD PO 09/23/24 18:00 09/25/24 06:15 40 MG Potassium Chloride 10 meq DAILY PO 09/23/24 10:00 09/25/24 09:29 10 MEQ Enoxaparin Sodium 80 mg Q12HR SC 09/23/24 22:00 09/23/24 22:28 80 MG laboratory and microbiology Laboratory Tests 09/23/24 03:54 Test 09/23/24 03:54 Range/Units Serum Glucose 151 H 74-106 mg/dL Assessment/Plan Status post coronary angiogram recommend medical treatment. Patient is in need of replacement of ICD given the battery issue. Apparently he is waiting for Cardiology to re-evaluate and change the battery sometime today. Meantime no changes to present management. Continue current supportive care and treatment and once replacement of ICD is done he can be discharged home. Discussed with the nurse. Problems(with codes): (1) Renal insufficiency (2) Syncope Plan discussed with: Other ANTONI HWANG MD September 25, 2024 15:50
--- NOTE | 2024-09-25 15:58 | DVHDS2 ---
Discharge Summary Date of Admission Sep 22, 2024 at 17:17 Date of Discharge: September 25, 2024 Labs/Diagnostic Data: Laboratory Results Test 09/24/24 06:38 09/23/24 03:54 09/23/24 00:32 09/22/24 19:40 Prothrombin Time 10.7 sec (9.3-11.8) Prothrombin Time INR 1.01 (0.9-1.15) Activated Partial Thromboplast Time 28.7 SEC (24.5-34.5) White Blood Count 8.8 10^3/uL (4.4-10.8) Red Blood Count 4.24 10^6/uL (4.5-5.90) Hemoglobin 12.9 g/dL (13.5-17.5) Hematocrit 38.4 % (41.0-53.0) Mean Corpuscular Volume 90.5 fL (80.0-100.0) Mean Corpuscular Hemoglobin 30.5 pg (28.0-32.0) Mean Corpuscular Hemoglobin Concent 33.7 g/dL (32.0-36.0) Red Cell Distribution Width 14.3 % (11.8-14.3) Platelet Count 176 10^3/uL (140-450) Mean Platelet Volume 10.8 fL (6.9-10.8) Neutrophils (%) (Auto) 61.0 % (37.0-80.0) Lymphocytes (%) (Auto) 28.7 % (10.0-50.0) Monocytes (%) (Auto) 8.9 % (0.0-12.0) Eosinophils (%) (Auto) 1.0 % (0.0-7.0) Basophils (%) (Auto) 0.4 % (0.0-2.0) Neutrophils # (Auto) 5.4 10 ^3/uL (1.6-8.6) Lymphocytes # (Auto) 2.5 10 ^3/uL (0.4-5.4) Monocytes # (Auto) 0.8 10 ^3/uL (0-1.3) Eosinophils # (Auto) 0.1 10 ^3/uL (0-0.8) Basophils # (Auto) 0 10 ^3/uL (0-0.2) Nucleated Red Blood Cells 0.1 % Sodium Level 142 mmol/L (136-145) Potassium Level 3.5 mmol/L (3.5-5.1) Chloride Level 103 mmol/L (98-107) Carbon Dioxide Level 31 mmol/L (20-31) Anion Gap 8 (5-15) Blood Urea Nitrogen 19 mg/dL (9-23) Creatinine 1.41 mg/dL (0.700-1.30) Glomerular Filtration Rate Calc 51 mL/min (>90) BUN/Creatinine Ratio 13.5 (10.0-20.0) Serum Glucose 151 mg/dL (74-106) Calcium Level 9.6 mg/dL (8.7-10.4) Magnesium Level 1.8 mg/dL (1.6-2.6) Total Bilirubin 0.8 mg/dL (0.2-1.0) Aspartate Amino Transferase (AST) 33 U/L (13-40) Alanine Aminotransferase (ALT) 32 U/L (7-40) Alkaline Phosphatase 144 U/L (46-116) Total Protein 6.4 g/dL (5.7-8.2) Albumin 4.1 g/dL (3.2-4.8) POC Glucose 155 mg/dl (70-106) Troponin I High Sensitivity 403 ng/L (</=54) Other Laboratory Tests 09/23/24 03:54 Brief Hx & Hospital Course: 79-year-old male with a known history of diabetes mellitus type 2, hypertension, 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 Patient stated that he was walking with his grandson and all of a sudden he past and fell backwards. He did mention that probably he lost consciousness for half a minute. Denies any chest pain palpitation before that denies any lightheadedness dizziness. Denies any seizure-like activities. In the ER patient was found to have elevated troponins original admission was recommended for [place]. Patient currently denies any chest pain palpitations lightheaded dizziness fevers chills cough or phlegm. He is admitted and evaluated by electrician substation and underwent successful coronary angiogram. Patient noted to have mild coronary artery disease recommended medical therapy. Patient has AICD/pacemaker is interrogated by pacemaker company and apparently working normal and has a another 10 months battery life left. Therefore no changes were made at present. Otherwise overnight post coronary angiogram patient is clinically stable. He is re-evaluated by Cardiology felt stable to be discharged home today. Patient is otherwise clinically stable asymptomatic. Patient verbalized understanding of his hospital diagnosis, treatment he received, discharge medications, discharge instructions and agree with follow-up plan of care. Consults/Reason for consult EXAM: Two-dimensional and M-mode echocardiogram with Doppler and color Doppler. Blood Pressure: 148/87 mmHg INDICATION NSTEMI RISK FACTORS Height: 5'9", Weight: 183 DIMENSIONS LVDd 4.7 (3.8-5.7cm) LA (2D) 4.6 (1.9-4.0cm) Aortic Root 3.1 (2.0- 3.7cm) LVDs 3.5 (2.5-4.0cm) LA (MM) (1.9-4.0cm) Aortic Cusp Exc 1.7 (1.5- 2.0cm) EF (%) 50.0 (55-70%) Rt. Atrium (1.9-4.0cm) Asc. Aorta 3.6 cm IVSd 1.3 (0.7-1.1cm) RV (D) (1.8-2.4cm) PWd 1.1 (0.7-1.1cm) Mitral Valve Mitral Mitral Stenosis E wave 0.37m/s MV Mean GR. mmHg A wave 0.66m/s MV Peak GR. mmHg E/A ratio 0.6 2D MVA cm2 DECEL Time 260ms PRESS 1/2 Time ms Aortic Valve Aortic Valve Aortic Stenosis V1 0.57m/s AO Mean GR. 3mmHg V2 1.03m/s AO Peak GR. 4mmHg LVOT Diameter 2.4 (1.8-2.4cm) Doppler SAMIA 2.50cm2 2D SAMIA 2.65cm2 Pulmonic Valve V2 0.70m/s Tricuspid Valve TR Velocity 2.31m/s RVSP 24mmHg Other Information Quality : Technically Limited Rhythm : Technically limited study due to body habitus. Conclusion Sinus rhythm. Concentric LVH with left atrial enlargement. Mild aortic sclerosis without stenosis. EF of 55% with normal LV function. Impaired diastolic relaxation. Diastolic dysfunction. Mild TR. No pericardial effusion masses or vegetations. SIGNED BY: SPENSER TOLBERT Sr., MD SIGNED DATE/TIME: 09/25/24 1045 Operations or Procedures Operative Report - 2 Report Details Date: 09/24/24 Preop Diagnosis: Status post ventricular fibrillation. Status post ICD shock. Coronary artery disease. Cardiomyopathy. Postop Diagnosis: Cardiomyopathy. Surgeon: Spenser Tolbert MD Anesthesiologist: Conscious sedation. Anesthesia: Mac, Local Consent: The patient was informed of the risks and benefits of the procedure. These include but are not limited to complications of anesthesia, postoperative infection, incomplete relief of symptoms, recurrence of symptoms, damage to blood vessels, nerves and tendons, deep venous thrombosis, pulmonary embolism and possible need for repeat surgery in the future. Complications: No complications. Findings: No significant CAD. Mild cardiomyopathy. Indications for Surgery: Status post ICD shock. Name of Procedure Performed Left heart catheterization, bilateral cine coronary angiography. Left ventriculography. Procedure Details Procedure Details: Prior local anesthesia with 2% lidocaine to the right wrist and full informed consent obtained the patient was prepped and draped in the usual fashion followed by placement of a six Tamazight sheath into the right radial artery through which a Glow catheter was used for ventriculography and cannulation of both right and left coronary ostia without complications. Hemodynamics. Aortic blood pressure was 110/70 end-diastolic pressure was five. There was no gradient across the aortic valve on pullback. Coronary anatomy the RCA is a large vessel it is normal in its proximal mid and distal segments. PDA and posterolateral branches were normal. Left main is large and normal. Left anterior descending is a large vessel with mild plaquing. No critical lesions in the LAD diagonals are septals. Left circumflex coronary artery is normal without critical lesions. Two marginals are free of significant disease. Ventriculography in the CAT projection shows an EF of 50%. Mild apical hypokinesis. Impression: Normal left ventricular end-diastolic pressure was normal ejection fraction with wall motion abnormalities however no artery disease. Normal coronary vessels. Recommendations: Continue risk factor modification. Replacement of ICD given given pacer is at [facility]. Condition Good Condition at Discharge: Stable Final Diagnosis/Problems List Cardiomyopathy status post coronary angiogram recommend aggressive risk factor modification with medical therapy. Status post interrogation of his AICD and battery life left another 10 months Discharge Disposition: Home Discharge Instruct/Medications Diet: Consistent carbohydrate, Cardiac 2g Na,low cholest Activity: No Restrictions, As Tolerated Follow Up/Referral: Dr. Tolbert your electrician substation after two weeks Medications: Home medications as per discharge med reconciliation list. Resume your metformin from 09/27/2024. Continued Medications: Allopurinol (Allopurinol) 300 Mg Tab 1 TAB PO DAILY for 30 Days, #30 Atorvastatin Calcium (Atorvastatin Calcium) 80 Mg Tab 1 TAB PO DAILY for 90 Days, #90 Calcitriol (Calcitriol) 0.25 Mcg Cap 1 CAP PO DAILY for 30 Days, #30 Clonidine Hydrochloride (Clonidine Hcl) 0.2 Mg Tab 1 TAB PO BID for 100 Days, #200 Fluticasone Propionate (Nasal) (Fluticasone Propionate) 50 Mcg/Act Spr 1 SPRAY SANDIE DAILY for 60 Days, #16 Furosemide (Furosemide) 40 Mg Tab 1 TAB PO DAILY for 30 Days, #30 Hydralazine Hcl (Hydralazine Hcl) 50 Mg Tab 1 TAB PO TID for 90 Days, #270 Metformin Hydrochloride (Metformin Hcl) 500 Mg Tab 1 TAB PO BID for 90 Days, #180 Metoprolol Tartrate (Lopressor Tablet) 50 Mg Tb 1 TAB PO BID for 90 Days, #180 Nifedipine (Nifedipine Er) 30 Mg Tab 1 TAB PO DAILY for 90 Days, #90 Omeprazole (Omeprazole Dr) 20 Mg Cap 1 CAP PO DAILY for 90 Days, #90 Potassium Chloride (Potassium Chloride ER) 10 Meq Tab 1 TAB PO DAILY for 90 Days, #90 Sacubitril-Valsartan (Entresto 49-51 mg) 1 Tab Tab 1 TAB PO BID for 30 Days, #60 Discontinued Medications: Doxycycline Hyclate (Doxycycline Hyclate) 100 Mg Tab 1 TAB PO BID for 5 Days, #10 Prednisone (Prednisone) 10 Mg Tab 50 MG PO DAILY for 5 Days, #5 Discharge Statement: "Patient was advised to return to the ER or call 911 if any headaches, dizziness, shortness of breath, chest pain, abdominal pain, bleeding, fevers, or worsening of medical condition. Patient was counseled about treatment plan, medications, possible side effects, patientverbalized understanding. All questions were answered to the best of my ability. This discharge took greater then 30 minutes in planning, reviewing documentation, counseling the patient, and discussing with other team members." ASSESSMENT ASSESSMENT Assessment Cardiomyopathy status post coronary angiogram recommend aggressive risk factor modification with medical therapy. Status post interrogation of his AICD and battery life left another 10 months ANTONI HWANG MD September 25, 2024 15:58
--- NOTE | 2024-09-26 15:01 | ECG ---
[facility] Test Date: 2024-09-22 Test Time: 20:27:22 Pat Name: JUAN STEINER Department: ED Room: 0292T A Gender: M [employer] Clerk: ROLLY : 1945 Requested By: DEB ANTONIO Order Number: [id number] Reading MD: Nas Tolbert Measurements Intervals [place] Rate: 83 P: 33 NC: 212 QRS: -32 QRSD: 102 T: 114 QT: 356 QTc: 419 Interpretive Statements Sinus rhythm Multiple ventricular premature complexes Borderline prolonged NC interval Left axis deviation Anterior infarct, old Nonspecific T abnormalities, lateral leads Electronically Signed On 09-26-2024 15:32:47 PDT by Nas Tolbert Please click the below link to view image of tracing.
== END 2024-09-25 18:25 | disposition home or self-care (01) | DRG 281 ==
LOC: ER 15:29 → OVERFLOW 17:17 → CATH ICU 23:50 → TELE-WESTW 09-23 11:47
PROVIDERS: ADMIT Internal Medicine; ATTEND Internal Medicine
PROC: 4B02XTZ Measurement of Cardiac Defibrillator, External Approach (ICD-10-PCS; 2024-09-22)
PROC: 4A023N7 Measurement of Cardiac Sampling and Pressure, Left Heart, Percutaneous Approach (ICD-10-PCS; principal; 2024-09-24)
PROC: B211YZZ Fluoroscopy of Multiple Coronary Arteries using Other Contrast (ICD-10-PCS; 2024-09-24)
PROC: B215YZZ Fluoroscopy of Left Heart using Other Contrast (ICD-10-PCS; 2024-09-24)
DX: I21.4 Non-ST elevation (NSTEMI) myocardial infarction (principal); I13.0 Hypertensive heart and chronic kidney disease with heart failure and stage 1 through stage 4 chronic kidney disease, or unspecified chronic kidney disease; I42.8 Other cardiomyopathies; N17.9 Acute kidney failure, unspecified; E11.22 Type 2 diabetes mellitus with diabetic chronic kidney disease; N18.9 Chronic kidney disease, unspecified; I50.9 Heart failure, unspecified; E78.5 Hyperlipidemia, unspecified; I49.3 Ventricular premature depolarization; J44.9 Chronic obstructive pulmonary disease, unspecified; I70.0 Atherosclerosis of aorta; M10.9 Gout, unspecified; Z79.01 Long term (current) use of anticoagulants; Z95.810 Presence of automatic (implantable) cardiac defibrillator; Z86.718 Personal history of other venous thrombosis and embolism; Z79.84 Long term (current) use of oral hypoglycemic drugs; Z88.8 Allergy status to other drugs, medicaments and biological substances; Z79.899 Other long term (current) drug therapy; Z83.3 Family history of diabetes mellitus
CPT/HCPCS: 36415; 71045; 73502; 80048; 80053; 82962; 83735; 84484; 85025; 85610; 85730; 87081; 93005; 93306; 93458; 99152; 99291; G0378; J2250; Q9967